=== PATIENT | female | born 1940 | race Caucasian/White ===

== ENCOUNTER 2018-05-10 20:54 | Emergency (ER) | payer BC ==
[~2018-05-10] VITALS: Ht 149.9 cm; Wt 46.7 kg
[2018-05-10 21:16] VITALS: BP_SYST 118
[2018-05-10] MEDS ORDERED: NACL 0.9% 1,000 ML IV ONE (21:45)
[2018-05-10 22:17] LABS: BILIRUBIN,URINE 1+ (NEGATIVE); BLOOD, URINE NEGATIVE (NEGATIVE); CLARITY/URINE CLEAR (CLEAR); COLOR,URINE YELLOW (YELLOW); GLUCOSE,URINE NEGATIVE (NEGATIVE); KETONES,URINE 3+ (NEGATIVE); LEUKOCYTE ESTERASE ,URINE TRACE (NEGATIVE); NITRITE, URINE NEGATIVE (NEGATIVE); PH,URINE 5.5 (5.0-8.0); PROTEIN URINE TRACE (NEGATIVE); UROBILINOGEN,URINE 0.2 (0.2-1.0)
[2018-05-10 22:23] LABS: HEMATOCRIT 36.7 % (36-48); MEAN CORPUSCULAR HEMOGLOBIN 31 pg (27-31); MEAN CORPUSCULAR HGB CONC 33 % (32-36); MEAN CORPUSCULAR VOLUME 95 fL (79.0-98.0); PLATELET COUNT (AUTO) 131 K/uL (130-430); RED BLOOD CELL COUNT(AUTO) 3.86 MIL/uL (4.2-6.2); RED CELL DISTRIBUTION WIDTH 12.1 % (9.0-15.0); WHITE BLOOD COUNT (AUTO) 2.8 K/uL (4.8-10.8)
[2018-05-10 22:28] LABS: BACTERIA,URINE MODERATE /HPF (None Seen); MUCUS,URINE 1+ /LPF (None Seen); RBC,URINE 0-3 /HPF (0-3)
[2018-05-10 22:30] LABS: ANION GAP 11 (5-15); CALCIUM 9.6 mg/dL (8.4-11.0); CHLORIDE 105 mmol/L (98-107); CREATININE 0.88 mg/dL (0.55-1.30); GLUCOSE 164 mg/dL (70-99); POTASSIUM 4.2 mmol/L (3.5-5.1); SODIUM SERUM 138 mmol/L (136-145); UREA NITROGEN, BLOOD 19 mg/dL (8-21)
[2018-05-10 22:35] LABS: ALANINE AMINOTRANSFERASE 32 U/L (12-78); ALBUMIN 3.6 g/dL (3.4-4.8); ASPARTATE AMINOTRANSFERASE 36 U/L (10-37); TOTAL BILIRUBIN 0.9 mg/dL (0.0-1.0)
[2018-05-10] MEDS ORDERED: cefTRIAXone 1 GM in D5W 50 ML IV ONE (22:45)
[2018-05-10] MEDS ORDERED: NITROFURANTOIN MONOHYD/M-CRYST 100 MG CAPSULE PO ONE (23:00)
[2018-05-10 23:38] LABS: BAND % (MANUAL) 20 % (0-6); BASOPHILS % (MANUAL) 0 % (0-2); EOSINOPHILS % (MANUAL) 0 % (0-7); LYMPHOCYTES % (MANUAL) 11 % (20-46); MONOCYTES % (MANUAL) 2 % (0-11)
[2018-05-10 23:57] VITALS: BP_SYST 115
== END 2018-05-10 23:57 | disposition home or self-care (01) ==
LOC: SED 20:54
DX: E86.0 Dehydration (principal); N39.0 Urinary tract infection, site not specified; M54.9 Dorsalgia, unspecified
CPT/HCPCS: 36415; 80053; 81000; 85007; 85027; 87086; 96360; 99284; J7030

== ENCOUNTER 2018-05-17 14:49 | Emergency (ER) | payer BC ==
[~2018-05-17] VITALS: Ht 149.9 cm; Wt 47.2 kg
[2018-05-17 14:58] VITALS: BP_SYST 140
[2018-05-17] MEDS ORDERED: KETOROLAC TROMETHAMINE 30 MG VIAL IVP ONE (15:15)
[2018-05-17 15:31] LABS: BILIRUBIN,URINE NEGATIVE (NEGATIVE); BLOOD, URINE NEGATIVE (NEGATIVE); CLARITY/URINE CLEAR (CLEAR); COLOR,URINE YELLOW (YELLOW); GLUCOSE,URINE NEGATIVE (NEGATIVE); KETONES,URINE 3+ (NEGATIVE); LEUKOCYTE ESTERASE ,URINE NEGATIVE (NEGATIVE); NITRITE, URINE NEGATIVE (NEGATIVE); PROTEIN URINE NEGATIVE (NEGATIVE); UROBILINOGEN,URINE 0.2 (0.2-1.0)
[2018-05-17 15:42] LABS: EOSINOPHILS # (AUTO) 0.1 K/uL (0.0-0.4); EOSINOPHILS % (AUTO) 3.1 % (0.0-4.0); HEMATOCRIT 39.1 % (36-48); LYMPHOCYTES # (AUTO) 0.9 K/uL (1.0-5.5); MEAN CORPUSCULAR HEMOGLOBIN 31 pg (27-31); MEAN CORPUSCULAR HGB CONC 33 % (32-36); MEAN CORPUSCULAR VOLUME 94 fL (79.0-98.0); MONOCYTES # (AUTO) 0.3 K/uL (0.0-1.0); MONOCYTES % (AUTO) 6.2 % (1.7-9.3); NEUTROPHILS # (AUTO) 2.8 K/uL (1.8-7.7); NEUTROPHILS % (AUTO) 68.7 % (40.0-70.0); PLATELET COUNT (AUTO) 191 K/uL (130-430); RED BLOOD CELL COUNT(AUTO) 4.16 MIL/uL (4.2-6.2); RED CELL DISTRIBUTION WIDTH 11.9 % (9.0-15.0); WHITE BLOOD COUNT (AUTO) 4.1 K/uL (4.8-10.8)
[2018-05-17 15:51] LABS: ANION GAP 10 (5-15); CALCIUM 9.5 mg/dL (8.4-11.0); CHLORIDE 104 mmol/L (98-107); CREATININE 0.87 mg/dL (0.55-1.30); GLUCOSE 140 mg/dL (70-99); POTASSIUM 4.1 mmol/L (3.5-5.1); SODIUM SERUM 139 mmol/L (136-145); UREA NITROGEN, BLOOD 10 mg/dL (8-21)
[2018-05-17 16:02] LABS: ALANINE AMINOTRANSFERASE 32 U/L (12-78); ALBUMIN 3.7 g/dL (3.4-4.8); ASPARTATE AMINOTRANSFERASE 25 U/L (10-37); LIPASE 857 U/L (73-393)
[2018-05-17 16:11] LABS: BACTERIA,URINE FEW /HPF (None Seen); MUCUS,URINE None Seen /LPF (None Seen); RBC,URINE 0-3 /HPF (0-3); WBC,URINE NONE SEEN /HPF (0-3)
[2018-05-17] MEDS ORDERED: ONDANSETRON 4 MG ODT TAB PO ONE (16:15)
== END 2018-05-17 16:40 | disposition home or self-care (01) ==
LOC: SED 14:49
DX: M54.5 Low back pain (principal); E11.9 Type 2 diabetes mellitus without complications; I10 Essential (primary) hypertension; E78.00 Pure hypercholesterolemia, unspecified
CPT/HCPCS: 36415; 72100; 80053; 81000; 83690; 85025; 96374; 99285; J1885; Q0162

== ENCOUNTER 2018-05-25 22:58 | Emergency (ER) | payer BC ==
[~2018-05-25] VITALS: Ht 147.3 cm; Wt 47.6 kg
--- NOTE | 2018-05-25 22:58 | NUR ---
Note lazaro in EDM - 05/25/18 at 2312 by [email or web address] Patient to bed 5 to [facility] for evaluation. Side rails up. Report given to LEE KLEIN AND LEE ROSADO.
--- NOTE | 2018-05-25 22:59 | NUR ---
Marcelino willis in ED - 05/25/18 at 2312 by [email or web address] LENARD Gee at bedside examining patient.
--- NOTE | 2018-05-25 23:10 | NUR ---
Note poojajustin in EDM - 05/25/18 at 2312 by YESENIA patient placed in gown. sent here from [facility] for elevated sodium, bun, and creatinine. patient is DNR, non-verbal.
--- NOTE | 2018-05-25 23:15 | NUR ---
Patient to ER bed 6 to gown for evaluation. Side rails up. Report given to LEE CHURCH.
--- NOTE | 2018-05-25 23:15 | NUR ---
EKG was ordered on this patient by mistake, EKG not needed per Dr Gee. No EKG performed on this patient.
--- NOTE | 2018-05-25 23:20 | NUR ---
Dr Gee at bedside to evaluate patient, with Kinsey RN as husker operator.
[2018-05-25 23:21] VITALS: BP_SYST 102
--- NOTE | 2018-05-25 23:25 | NUR ---
Patient to ER via triage with c/o constipation x 2 days, patient reports taking Miralax today without relief. Patient is awake, alert and oriented in no acute distress, vital signs stable, respirations even and unlabored, skin warm and dry to touch. Patient has been seen and evaluated by Dr Gee, will continue to observe and assess.
[2018-05-25] MEDS ORDERED: MINERAL OIL 133 ML ENEMA RC ONE (23:30)
--- NOTE | 2018-05-25 23:44 | NUR ---
Scanner did not recognize [employer] Enema, able to scan patient, but had to manually enter enema information.
--- NOTE | 2018-05-26 00:15 | NUR ---
Patient reports that she feels better after enema, patient had formed brown stool. Dr Gee notified of results of enema, will be in to re-evaluate patient.
--- NOTE | 2018-05-26 01:00 | NUR ---
Patient resting quietly in no acute distress. Awaiting dispo.
--- NOTE | 2018-05-26 02:00 | NUR ---
Assessment remains unchanged, awaiting dispo. Will continue to observe and assess.
--- NOTE | 2018-05-26 02:34 | NUR ---
patient is sleeping. no signs of distress.
--- NOTE | 2018-05-26 03:00 | NUR ---
Dr Gee at bedside speaking with patient regarding plan of care, questions answered by Dr Gee. Patient sitting on bedside commode having another bowel movement. Awaiting dispo.
[2018-05-26 03:10] VITALS: BP_SYST 110
--- NOTE | 2018-05-26 03:10 | NUR ---
Patient given written and verbal discharge instructions and verbalizes understanding. ER MD discussed with patient the results and treatment provided. Patient in stable condition. ID arm band removed. No RX given. Patient educated on pain management and to follow up with PMD. Pain Scale 0. Opportunity for questions provided and answered. Patient left ER in no acute distress, ambulating without difficulty with slow, steady gait. Patient denies pain/discomfort at present, and states she feels much better after enema/having BM.
== END 2018-05-26 03:10 | disposition home or self-care (01) ==
LOC: SED 22:58
DX: K59.00 Constipation, unspecified (principal); E78.00 Pure hypercholesterolemia, unspecified; E11.9 Type 2 diabetes mellitus without complications; I10 Essential (primary) hypertension
CPT/HCPCS: 99283

== ENCOUNTER 2018-07-05 22:20 | Inpatient (IN) | payer BC ==
[~2018-07-05] VITALS: Ht 149.9 cm; Wt 38.2 kg
[2018-07-05 22:23] VITALS: BP_SYST 118
--- NOTE | 2018-07-05 22:23 | NUR ---
Patient to ER bed 5 to gown for evaluation. Side rails up. Report given to Jannie HOWARD.
--- NOTE | 2018-07-05 22:40 | NUR ---
Patient moved to ER bed 6. Patient is ambulatory with steady gait.
--- NOTE | 2018-07-05 22:45 | NUR ---
Patient came in complaining of n/v for a month, and pain in back and hips. Pt says that she has been in and out of emergency rooms. Results from previous visits show that she has a pancreas mass. No reports of fever, chills. Pain is 5/10. HX of Diabetes, HTN and high cholesterol. No other complaints/injuries noted.
[2018-07-05] MEDS ORDERED: NACL 0.9% 1,000 ML IV ONE (23:00)
[2018-07-05] MEDS ORDERED: KETOROLAC TROMETHAMINE 15 MG VIAL IVP ONE (23:00)
[2018-07-05] MEDS ORDERED: ONDANSETRON HCL 4 MG/2 ML VIAL IVP ONE (23:00)
[2018-07-05 23:14] LABS: BILIRUBIN,URINE 2+ (NEGATIVE); BLOOD, URINE NEGATIVE (NEGATIVE); CLARITY/URINE CLEAR (CLEAR); COLOR,URINE YELLOW (YELLOW); GLUCOSE,URINE NEGATIVE (NEGATIVE); KETONES,URINE 3+ (NEGATIVE); LEUKOCYTE ESTERASE ,URINE 1+ (NEGATIVE); NITRITE, URINE NEGATIVE (NEGATIVE); PROTEIN URINE 1+ (NEGATIVE); UROBILINOGEN,URINE 0.2 (0.2-1.0)
--- NOTE | 2018-07-05 23:17 | NUR ---
Patient medicated with Toradol IVP, zofran IVP and fluids per MD order. Tolerating well. Will cont. to monitor.
[2018-07-05 23:27] LABS: EOSINOPHILS # (AUTO) 0.1 K/uL (0.0-0.4); LYMPHOCYTES # (AUTO) 0.4 K/uL (1.0-5.5); MEAN CORPUSCULAR HGB CONC 32 % (32-36); NEUTROPHILS # (AUTO) 2.4 K/uL (1.8-7.7); RED CELL DISTRIBUTION WIDTH 16.5 % (9.0-15.0)
[2018-07-05 23:28] LABS: BACTERIA,URINE FEW /HPF (None Seen); RBC,URINE 0-3 /HPF (0-3)
[2018-07-05 23:29] LABS: MUCUS,URINE 3+ /LPF (None Seen); YEAST,URINE None Seen /HPF (None Seen)
[2018-07-05 23:31] LABS: ANION GAP 14 (5-15); CALCIUM 9.3 mg/dL (8.4-11.0); CHLORIDE 98 mmol/L (98-107); CREATININE 1.06 mg/dL (0.55-1.30); GLUCOSE 147 mg/dL (70-99); POTASSIUM 3.4 mmol/L (3.5-5.1); SODIUM SERUM 139 mmol/L (136-145); UREA NITROGEN, BLOOD 20 mg/dL (8-21)
[2018-07-05 23:35] LABS: BASOPHILS % (AUTO) 1.2 % (0.0-2.0); EOSINOPHILS % (AUTO) 2.2 % (0.0-4.0); HEMATOCRIT 42.7 % (36-48); HEMOGLOBIN 13.7 g/dL (12.0-16.0); LYMPHOCYTES % (AUTO) 11.2 % (20.5-51.5); MEAN CORPUSCULAR HEMOGLOBIN 31 pg (27-31); MEAN CORPUSCULAR VOLUME 95 fL (79.0-98.0); MONOCYTES # (AUTO) 0.5 K/uL (0.0-1.0); NEUTROPHILS % (AUTO) 71.4 % (40.0-70.0); PLATELET COUNT (AUTO) 141 K/uL (130-430); RED BLOOD CELL COUNT(AUTO) 4.49 MIL/uL (4.2-6.2)
--- NOTE | 2018-07-05 23:37 | NUR ---
Pt signed contrast administration questionnaire and consent. Pt states that she takes metformin and has signed the "metformin consent form."
[2018-07-05 23:40] LABS: WHITE BLOOD COUNT (AUTO) 3.4 K/uL (4.8-10.8)
[2018-07-05 23:42] LABS: ALANINE AMINOTRANSFERASE 18 U/L (12-78); ALBUMIN 3.5 g/dL (3.4-4.8); ASPARTATE AMINOTRANSFERASE 26 U/L (10-37); LIPASE 752 U/L (73-393); TOTAL BILIRUBIN 1.3 mg/dL (0.0-1.0)
--- NOTE | 2018-07-05 23:45 | NUR ---
Marcelino willis in [facility] - 07/06/18 at 0028 by [email or web address] Patient transported to radiology via jama, accompanied by Raven.
[2018-07-05] MEDS ORDERED: IOHEXOL 100 ML IV ONE (23:49)
--- NOTE | 2018-07-06 | NUR ---
Patient transported to radiology via gurney, accompanied by Raven.
--- NOTE | 2018-07-06 00:30 | NUR ---
Pt returned from radiology.
[2018-07-06] MEDS ORDERED: SIMV20TA2 PO (01:39)
[2018-07-06] MEDS ORDERED: HYDR-4272 PO (01:39)
[2018-07-06] MEDS ORDERED: GLU500 PO (01:39)
[2018-07-06] MEDS ORDERED: ONDA4TAB5 PO (01:39)
--- NOTE | 2018-07-06 01:40 | NUR ---
Medication reconciliation completed with information provided by family. Any prior medication reconciliation on file was reviewed and corrected.
--- NOTE | 2018-07-06 02:10 | NUR ---
Patient will be admitted to care of Dr. Pierre. Admitted to Medsurg unit. Will go to room 119. Belongings list completed. Summary report printed. Report will be given at bedside.
[2018-07-06] MEDS ORDERED: MORPHINE 4 MG/ML INJ. SYRINGE IVP PRN (02:15)
--- NOTE | 2018-07-06 02:39 | NUR ---
ADMISSION: The patient, ANANYA RANDALL, 78 y/o, F admitted by DR MENON , WITH THE DIAGNOSIS OF PANCREATIC MASS ,was given written information regarding hospital policies, unit procedures and contact persons. Daughter at bedside.
--- NOTE | 2018-07-06 02:39 | NUR ---
Transfer to [facility] . Licensed nurse present. IV present no signs or symptoms of infiltration.
[2018-07-06 03:00] VITALS: BP_SYST 151
--- NOTE | 2018-07-06 03:04 | NUR ---
CONSULT REASON FOR CONSULT: GI PERSON I SPOKE WITH: JL CONSULTING PHYSICIAN: DR. RAPP MANAGER ROOM PHONE NUMBER: [phone] ORDERING PHYSICIAN: DR. MENON
[2018-07-06] MEDS ORDERED: cefTRIAXone 1 GM IVPB PREMIX 50 ML IV ONE ×2 (03:15→04:55)
--- NOTE | 2018-07-06 04:17 | NUR ---
ROUNDS Patient resting, no sign of distress noted. She denies pain or nausea at this time. Safety measures in place. Will monitor.
[2018-07-06] MEDS: D5NS 1,000 ML IV SCH ×2 (05:31→21:10)
--- NOTE | 2018-07-06 06:50 | NUR ---
CLOSING NOTE Patient resting, w/ eyes closed. No sign of distress noted. IVF infusing as ordered. Safety measures in place and call light w/in reach. Will endorse to oncoming nurse.
--- NOTE | 2018-07-06 07:34 | NUR ---
OPENING NOTE PT IN BED WITH EYES CLOSED- EASILY AROUSED. TONI LIGHT VISIBLY WITHIN REACH . BED ALARM ON WITH BED IN THE LOWEST POSITION. NO DISTRESS NOTED.
[2018-07-06 08:07] VITALS: BP_SYST 114
--- NOTE | 2018-07-06 08:30 | NUR ---
PT TAKEN FOR X-RAY AT THIS TIME.
[2018-07-06] MEDS ORDERED: BARIUM SULFATE 135 ML SUSP.RECON (E-Z-HD) PO ONE (08:50)
--- NOTE | 2018-07-06 09:48 | NUR ---
Nutrition Update Narciso Scale 16 noted. Pt admitted for pancreatic mass. Diet: NPO BMI: 17 kg/m2 RD to follow per nutrition care standards.
--- NOTE | 2018-07-06 11:15 | NUR ---
tap water enema tap water enema given at this time. pt tolerated well. no distress. pt use bedside commode after- small bm noted Addendum: 07/06/18 at 1647 by Carrie Lima RN enema done until clear.
[2018-07-06 12:15] VITALS: BP_SYST 120
--- NOTE | 2018-07-06 12:51 | NUR ---
CONSULTATION PAGED/CALLED Reason for Consultation: ORDERS Person Who was Notified: SHERITA Consulting Physician: SINAN Egg Processing Supervisor Specialty: INTERNAL MEDICINE Ordering Physician: SINAN
--- NOTE | 2018-07-06 13:38 | NUR ---
pt laying in bed resting with eyes closed- equal chest rise noted, no distress noted. call light visibly within reach. safety maintained.
[2018-07-06] MEDS ORDERED: DEXTROSE 50% JECT 50 ML DISP.SYRIN IVP PRN (13:45)
[2018-07-06 16:52] VITALS: BP_SYST 136
--- NOTE | 2018-07-06 16:52 | NUR ---
pt in bed awake. no distress noted. call light visibly within reach. safety maintained.
--- NOTE | 2018-07-06 18:43 | NUR ---
closing note all needs met through shift. safety maintained. will endorse care to wood router hand.
--- NOTE | 2018-07-06 19:30 | NUR ---
Initial Notes Received handoff report from offgoing nurse at the bedside. Patient is awake and alert, resting comfortably in bed. Family is at the bedside. IV site is intact, dressing clean and dry, currently infusing IVF at the ordered rate, see eMAR for details. Bed is locked, in the lowest position, 2x siderails are up. Call light is within reach. Encouraged patient to call. Explained plan of care to the patient. Patient verbalized understanding, Will continue with plan of care.
[2018-07-06 20:00] VITALS: BP_SYST 116
--- NOTE | 2018-07-06 23:42 | NUR ---
Patient is resting comfortably in bed with eyes closed. Breathing is even and unlabored with visible chest rise and fall noted. No SOB, no acute distress, no signs of pain or facial grimacing. Bed is locked, in the lowest position, 2x side rails up, bed alarm is on. Call light is within reach.
--- NOTE | 2018-07-07 01:38 | NUR ---
Patient is sleeping, resting comfortably in bed. No SOB, no acute distress, no signs of pain or facial grimacing noted. Breathing is even and unlabored with visible chest rise and fall noted. Bed is locked, in the lowest position, 2x side rails up, bed alarm is on. Call light is within reach.
[2018-07-07 02:27] VITALS: BP_SYST 115
--- NOTE | 2018-07-07 04:45 | NUR ---
Patient is resting comfortably in bed with eyes closed. Breathing is even and unlabored with visible chest rise and fall noted. IV site is intact, dressing clean and dry, currently infusing IVF at the ordered rate, see eMAR. Bed is locked, in the lowest position, 2x side rails are up, bed alarm is on. Call light is within reach.
--- NOTE | 2018-07-07 06:26 | NUR ---
Dr Bird at the bedside to see the patient. All questions has been answered by the physician at this time.
[2018-07-07] MEDS ORDERED: METOCLOPRAMIDE HCL 10 MG TABLET PO PRN (06:30)
--- NOTE | 2018-07-07 07:14 | NUR ---
Closing Notes Handoff report given to oncoming dayshift nurse at the bedside. Patient is resting comfortably in bed with eyes closed. Breathing is even and unlabored with visible chest rise and fall noted. No SOB, no acute distress, no signs of pain or facial grimacing at this time. IV site is intact, dressing clean and dry, currently infusing IVF at the ordered rate, see eMAR for details. Bed is locked, in the lowest position, 2x side rails are up, bed alarm is on. Call light is within reach. Fall and safety precautions maintained. All needs have been met during this shift.
--- NOTE | 2018-07-07 07:41 | NUR ---
opening note pt in bed with eyes closed, easily aroused, no distress noted. call light visibly within reach. bed alarm in place with bed in the lowest position.
[2018-07-07 08:00] VITALS: BP_SYST 120
[2018-07-07] MEDS: D5NS 1,000 ML IV SCH ×2 (08:06→22:24)
--- NOTE | 2018-07-07 08:43 | NUR ---
CONSULTATION CALLED REASON FOR CONSULTATION:PANCREATIC MASS WAS CONSULT CALLED?Y PERSON WHO WAS NOTIFIED:RICHARD CONSULTING PHYSICIAN:ECTOR TORRES (MIKHAIL CONTRERAS DEBARKER OPERATOR) JOCKEY VALET SPECIALTY:QUALITY ASSURANCE COACH PHONE NUMBER:[phone] ORDERING PHYSICIAN:JANES DIAMOND
[2018-07-07] MEDS: MORPHINE 2 MG/ML INJ. SYRINGE IVP PRN ×3 (09:00→23:55)
--- NOTE | 2018-07-07 09:10 | NUR ---
PT C/O OF PAIN GIVEN MORPHINE ORDERED.
--- NOTE | 2018-07-07 11:45 | NUR ---
PAGED PAGED JANES DIAMOND AT [phone] SPOKE WITH AVRIL.
--- NOTE | 2018-07-07 12:00 | NUR ---
PATIENT RESTING: Patient resting quietly. No acute distress noted. Vital signs within normal range.
--- NOTE | 2018-07-07 12:30 | NUR ---
Case mgt: Rec'd order for transfer to [facility] or [facility] for EUS--I called flo Brasher at [facility]) at [phone] and made her aware of transfer order. I will fax her order ,H&P, Med list, etc to fax#[phone]--LEANDRO HOWARD
[2018-07-07 12:44] VITALS: BP_SYST 130
--- NOTE | 2018-07-07 14:53 | NUR ---
pain med pt c/o back pain given morphine as ordered. no other distress noted. safety maintained.
[2018-07-07] MEDS: ONDANSETRON HCL 4 MG/2 ML VIAL IVP PRN ×2 (15:31→23:25)
--- NOTE | 2018-07-07 15:32 | NUR ---
Case mgt: I s/w Anshu, spring encaser for [facility]--she said she s/w Dr. Vikram Ludwig and plan will be for pt to have EUS-Esophageal ultrasound-at [facility] as outpt and pt will discharge to SNF instead-most likely [facility] tomorrow. I updated nurse Carrie and will place transfer packet w/xray CD on nursing unit. LEANDRO HOWARD
--- NOTE | 2018-07-07 15:36 | NUR ---
patient given zofran for nausea. vomited small green amount.
--- NOTE | 2018-07-07 16:44 | NUR ---
BLOOD SUGAR CHECKED -158
[2018-07-07 17:07] VITALS: BP_SYST 135
--- NOTE | 2018-07-07 18:36 | NUR ---
closing note all needs met through shift. safety maintained. will endorse care to mine shifter. Addendum: 07/08/18 at 0725 by Carrie Lima RN late entry insulin held throughout day. pt did not eat throughout the day.
--- NOTE | 2018-07-07 19:49 | NUR ---
OPENING NOTES Pt and endorsement received from morning shift nurse. Pt is AAOx4, lying in bed with family at bedside. Pt is on IVF D5NS at 70ml/hr infusing well on left forearm G22. Pt has no complains of pain or nausea and vomiting at this time. No signs of acute distress or SOB noted. Encouraged to use call light when needed. Call light with pt, bed alarm on and at its lowest level. Will continue to monitor.
[2018-07-07 20:00] VITALS: BP_SYST 127
[2018-07-07] MEDS: INSULIN REGULAR, HUMAN 100 UNITS/ML, 10 ML VIAL (novoLIN R) SUBCUT PRN (21:30)
--- NOTE | 2018-07-07 23:25 | NUR ---
ZOFRAN GIVEN Pt complained that she is nauseas. Zofran 4mg/2ml IVP given as ordered. Educated her to eat ice chips and drink sips of cold water. Encouraged her to use call light when needed. Safety precautions in place and call light with pt. Will continue to monitor.
--- NOTE | 2018-07-07 23:55 | NUR ---
PAIN MED/MORPHINE 2MG GIVEN Pt complained of lower mid back pain with a scale of 3/10. Morphine 2mg/ml IVP given as ordered. Educated on side effects of pain med and pt acknowledges it. Encouraged to call when needed. Call light with pt and safety precautions in place. Will continue to monitor.
[2018-07-08] MEDS: D5NS 1,000 ML IV SCH ×2 (00:28→13:46)
[2018-07-08 00:50] VITALS: BP_SYST 120
--- NOTE | 2018-07-08 02:03 | NUR ---
RESTING Pt is resting in bed with both eyes closed. With visible chest rise and fall noted. No signs of acute distress or SOB noted. No complains of pain, nausea and vomiting. Call light with pt, bed alarm on and at its lowest level. Will continue to monitor.
--- NOTE | 2018-07-08 04:05 | NUR ---
RESTING Pt is resting in bed with both eyes closed. With visible chest rise and fall noted. No signs of any acute distress noted. Safety precautions in place and call light with pt. Will continue to monitor.
[2018-07-08] MEDS: INSULIN REGULAR, HUMAN 100 UNITS/ML, 10 ML VIAL (novoLIN R) SUBCUT PRN ×2 (06:10→11:49)
[2018-07-08 06:18] LABS: BASOPHILS % (AUTO) 0.5 % (0.0-2.0); EOSINOPHILS # (AUTO) 0.1 K/uL (0.0-0.4); EOSINOPHILS % (AUTO) 2.8 % (0.0-4.0); HEMATOCRIT 31.5 % (36-48); HEMOGLOBIN 10.3 g/dL (12.0-16.0); LYMPHOCYTES # (AUTO) 0.4 K/uL (1.0-5.5); LYMPHOCYTES % (AUTO) 12.7 % (20.5-51.5); MEAN CORPUSCULAR HEMOGLOBIN 31 pg (27-31); MEAN CORPUSCULAR HGB CONC 33 % (32-36); MEAN CORPUSCULAR VOLUME 96 fL (79.0-98.0); MONOCYTES # (AUTO) 0.4 K/uL (0.0-1.0); MONOCYTES % (AUTO) 14.8 % (1.7-9.3); NEUTROPHILS # (AUTO) 2.1 K/uL (1.8-7.7); NEUTROPHILS % (AUTO) 69.2 % (40.0-70.0); RED BLOOD CELL COUNT(AUTO) 3.29 MIL/uL (4.2-6.2); RED CELL DISTRIBUTION WIDTH 16.7 % (9.0-15.0)
--- NOTE | 2018-07-08 06:34 | NUR ---
CLOSING NOTES Pt is resting in bed with both eyes closed. With visible chest rise and fall noted. No complains of pain, nausea and vomiting at this time. All needs attended throughout the shift. Call light with pt, bed alarm on and at its lowest level. Will endorse to morning shift nurse.
[2018-07-08 06:40] LABS: ALANINE AMINOTRANSFERASE 13 U/L (12-78); ALBUMIN 2.1 g/dL (3.4-4.8); ANION GAP 5 (5-15); ASPARTATE AMINOTRANSFERASE 18 U/L (10-37); CHLORIDE 110 mmol/L (98-107); CREATININE 0.57 mg/dL (0.55-1.30); GLUCOSE 161 mg/dL (70-99); LIPASE 246 U/L (73-393); SODIUM SERUM 144 mmol/L (136-145); TOTAL BILIRUBIN 0.8 mg/dL (0.0-1.0); UREA NITROGEN, BLOOD 5 mg/dL (8-21)
[2018-07-08 07:06] LABS: POTASSIUM 2.6 mmol/L (3.5-5.1)
--- NOTE | 2018-07-08 07:19 | NUR ---
PAGED Shannan DALY @[phone] RE: LABS
--- NOTE | 2018-07-08 07:31 | NUR ---
opening note pt in bed eyes clsoed- equal chest rise noted. no distress. call light within reach. bed alarm in place, with bed in the lowest position
--- NOTE | 2018-07-08 07:42 | NUR ---
md rounds/ critical lab dr abdirahman gil at this time already aware of this mornings potassium. new orders in place.
[2018-07-08] MEDS ORDERED: KCL 40 mEq in 100 mL (PREMIX) 100 ML IV ONE (07:45)
[2018-07-08] MEDS ORDERED: POTASSIUM CHLORIDE 20 MEQ/PKT PACKET PO ONE (07:45)
[2018-07-08 08:04] VITALS: BP_SYST 128
--- NOTE | 2018-07-08 08:50 | NUR ---
40 meq kcl packet given at this time. 40meq kcl rider hung as well. no distress noted. safety maintained.
--- NOTE | 2018-07-08 09:35 | NUR ---
DC Planning: F/U with [facility], she is will call back when has bed at [facility]. POC is to send pt. to [facility] first and Anshu will arrange EUS out patient at [facility] or [facility]. MARK Anuradha aware. JASON will confirm with pt. and . Addendum: 07/08/18 at 1342 by Keyshawn Chand RN >> Called jason Brasher at [facility]) at [phone], f/u on bed at [place]. Per Anshu , she has bed for [place] but her computer system is down, unable to give auth to [facility]. Once her system is up and able to give auth to [place], she will call nursing unit to give bed and ambulance ETA.-- LEE Butler made aware.
--- NOTE | 2018-07-08 11:52 | NUR ---
pt in bed. no complaints at this time. safety maintained. will continue to monitor.
[2018-07-08 11:54] LABS: PLATELET COUNT (AUTO) 97 K/uL (130-430)
[2018-07-08 12:19] VITALS: BP_SYST 125
[2018-07-08] MEDS: MORPHINE 2 MG/ML INJ. SYRINGE IVP PRN ×2 (13:00→18:56)
--- NOTE | 2018-07-08 13:04 | NUR ---
PT C/O ABD PAIN GIVEN MORPHINE ORDERED. SAFETY MAINTAINED. NO OTHER DISTRESS NOTED.
[2018-07-08 14:28] VITALS: BP_SYST 96
--- NOTE | 2018-07-08 15:00 | NUR ---
PATIENT RESTING: Patient resting quietly. No acute distress noted. Vital signs within normal range.
[2018-07-08 16:37] VITALS: BP_SYST 137
--- NOTE | 2018-07-08 17:06 | NUR ---
PATIENT RESTING: Patient resting quietly. No acute distress noted. Vital signs within normal range.
--- NOTE | 2018-07-08 19:05 | NUR ---
PT TRANSFERRED Report given. Transfer packet with Transfer Orders and Medication Reconciliation form given to EMT with report. Exitcare provided. [facility] ID band removed, replaced with ID band with pt's name and . All belongings sent with patient. Patient left floor via gurney escorted by EMT in no distress.
[2018-07-10 11:44] LABS: CEA 29.1 ng/mL (0.0-4.7)
[2018-07-10 11:44] LABS: CEA 28.3 ng/mL (0.0-4.7)
== END 2018-07-08 19:05 | DRG 439 ==
LOC: SED 22:20 → SMU 07-06 02:14
PROVIDERS: ADMIT Internal Medicine Hospice and Palliative Medicine; ATTEND Internal Medicine Hospice and Palliative Medicine
DX: K86.89 Other specified diseases of pancreas (principal); N39.0 Urinary tract infection, site not specified; R64 Cachexia; Z68.1 Body mass index [BMI] 19.9 or less, adult; E11.9 Type 2 diabetes mellitus without complications; I10 Essential (primary) hypertension; K59.00 Constipation, unspecified; E78.00 Pure hypercholesterolemia, unspecified; D69.6 Thrombocytopenia, unspecified; Z79.899 Other long term (current) drug therapy
CPT/HCPCS: 36415; 74245-TC; 80053; 81000-TC; 82378; 82962; 83605; 83690-TC; 84134; 85025; 86301; 87040-TC; 87086; 96361; 96374; 96375; 99285; J0696; J1815; J1885; J2270; J2405; J3480; J7042; Q9967